=== PATIENT | female | born 1970 | race Two or more races ===

== ENCOUNTER 2019-04-02 01:41 | Emergency (ER) | payer MEDICAID ==
[~2019-04-02] VITALS: Ht 160 cm; Wt 61.3 kg
[2019-04-02 01:44] VITALS: BP 185/97
[2019-04-02] MEDS ORDERED: LISI1TAB13 PO (02:19)
[2019-04-02] MEDS ORDERED: PRED20TA PO (02:19)
[2019-04-02] MEDS ORDERED: DICL75TA5 PO (02:19)
== END 2019-04-02 02:47 | disposition home or self-care (01) ==
LOC: ER 01:42
DX: M25.511 Pain in right shoulder (principal); M25.512 Pain in left shoulder; G89.29 Other chronic pain; I10 Essential (primary) hypertension; Z88.8 Allergy status to other drugs, medicaments and biological substances; Z88.5 Allergy status to narcotic agent; Z79.899 Other long term (current) drug therapy
CPT/HCPCS: 99283